=== PATIENT | female | born 1995 | race Caucasian/White ===

== ENCOUNTER 2017-02-26 19:31 | Emergency (ER) | payer BC, OTHER ==
[~2017-02-26] VITALS: Ht 160 cm; Wt 66.5 kg
[2017-02-26 19:43] VITALS: Ht 160 cm; Wt 66.5 kg
[2017-02-26 21:13] LABS: ADD UMIC YES; URINE BILIRUBIN (Dip) NEGATIVE (NEGATIVE); URINE BLOOD (Dip) 3+ (NEGATIVE); URINE COLOR YELLOW (YELLOW); URINE GLUCOSE (Dip) NEGATIVE (NEGATIVE); URINE KETONES (Dip) NEGATIVE (NEGATIVE); URINE LEUKOCYTE ESTERASE (Dip) 3+ (NEGATIVE); URINE NITRITE (Dip) POSITIVE (NEGATIVE); URINE TOTAL PROTEIN (Dip) 1+ (NEGATIVE); URINE UROBILINOGEN (Dip) 0.2 E.U./dL (0.1-1.0)
[2017-02-26 21:30] LABS: SQUAMOUS EPITHELIAL CELL,UR FEW
[2017-02-26 21:31] LABS: BACTERIA,URINE MODERATE
[2017-02-26] MEDS ORDERED: NITR-58 PO (21:51)
--- NOTE | 2017-02-26 21:56 | ERD ---
ER Documentation Chief Complaint Date/Time DATE: 02/26/17 TIME: 21:52 Chief Complaint DYSURIA WITH ODOR AND BLEEDING X 4 DAYS HPI Patient is a 21-year-old female who presents to the emergency department with concerns of dysuria 4 days. Patient does report frequency and urgency. Patient also reports hematuria. Patient denies any fevers, chills, nausea, vomiting, flank pain, abdominal pain or pelvic pain. Patient states her last menstrual period started last week. She does report any tract infections in the past. ROS All systems reviewed and are negative except as per history of present illness. Medications Home Meds Active Scripts Nitrofurantoin Monohyd Macrocr* (Macrobid*) 100 Mg Capsr, 100 MG PO BID for 5 Days, CAP Prov:BALJINDER MEJIA PA-C 02/26/17 Allergies Allergies: Coded Allergies: No Known Drug Allergy (Verified Allergy, Mild, 10/25/12) PMhx/Soc Medical and Surgical Hx: pt denies Medical Hx, pt denies Surgical Hx History of Surgery: No Anesthesia Reaction: No Hx Neurological Disorder: No Hx Respiratory Disorders: No Hx Cardiac Disorders: No Hx Psychiatric Problems: No Hx Miscellaneous Medical Probl: No Hx Alcohol Use: No Hx Substance Use: No Hx Tobacco Use: No FmHx Family History: No diabetes Physical Exam Vitals Vital Signs Date Time Temp Pulse Resp B/P Pulse Ox O2 Delivery O2 Flow Rate FiO2 02/26/17 19:43 96.9 63 16 131/82 99 Physical Exam GENERAL: Well-developed, well-nourished female. Appears in no acute distress. HEAD: Normocephalic, atraumatic. EYES: Pupils are equally reactive bilaterally. EOMs grossly intact. No conjunctival erythema. ENT: Moist mucous membranes. No uvula deviation. No kissing tonsils. NECK: Supple. No meningismus. Normal range of motion of the neck. LUNG: Clear to auscultation bilaterally. No rhonchi, wheezing, rales or coarse breath sounds. HEART: Regular rate and rhythm. No murmurs, rubs or gallops. ABDOMEN: No scars, ecchymosis or rashes noted. Soft, nontender, and nondistended. Positive bowel sounds in all four quadrants. No rebound tenderness , no guarding. (-) McBurney's point tenderness. No CVA tenderness. BACK: No midline tenderness. EXTREMITIES: Equal pulses bilaterally. No peripheral clubbing, cyanosis or edema. No unilateral leg swelling. NEUROLOGIC: Alert and oriented. Moving all four extremities without any difficulty. Normal speech. Steady gait. SKIN: Normal color. Warm and dry. No rashes or lesions. Results 24 hrs Laboratory Tests Test 02/26/17 20:30 Urine Color YELLOW Urine Clarity HAZY Urine pH 6.5 Urine Specific [place] 1.010 Urine Ketones NEGATIVE Urine Nitrite POSITIVE Urine Bilirubin NEGATIVE Urine Urobilinogen 0.2 E.U./dL Urine Leukocyte Esterase 3+ Urine Microscopic RBC 10-25/HPF Urine Microscopic WBC >50/HPF Urine Squamous Epithelial Cells FEW Urine Bacteria MODERATE Urine Hemoglobin 3+ Urine Glucose NEGATIVE% Urine Total Protein 1+ Procedures/MDM MEDICAL DECISION MAKING: This is a 21-year-old female presents with dysuria, frequency and hematuria 4 days. Patient denied any fevers, chills, nausea, vomiting or flank pain. Vital signs were reviewed. Patient was afebrile. UA showed positive nitrites, 3 + leukocyte esterase, greater than 50 WBCs. Urine was negative. Given these findings, the patient's presentation is most consistent with urinary tract infection. I have a much lower clinical concern for pyelonephritis , nephrolithiasis, appendicitis, diverticulitis, constipation, ectopic . PRESCRIPTIONS: Macrobid DISCHARGE: At this time, patient is stable for discharge and outpatient management. I have instructed the patient to follow-up with his/her primary care physician in 1-2 days. Patient should repeat UA in 2 weeks to check for resolution of urinary tract infection. If symptoms persist, patient may need to see a specialist for further examinations and testing. I have instructed the patient to promptly return to the ER at any time for any new or worsening symptoms including increased pain, fever, nausea, vomiting, urinary changes or weakness. The patient and/or family expressed understanding of and agreement with this plan. All questions were answered. Home care instructions were provided. Departure Diagnosis: Primary Impression: UTI (urinary tract infection) Urinary tract infection type: site unspecified Hematuria presence: with hematuria Qualified Code: N39.0 - Urinary tract infection with hematuria, site unspecified Condition: Stable Patient Instructions: Understanding Urinary Tract Infections (UTIs) Referrals: BOO SEVILLA MD (PCP) Additional Instructions: Call your primary care doctor TOMORROW for an appointment during the next 1-2 days.See the doctor sooner or return here if your condition worsens before your appointment time. BALJINDER MEJIA PA-C Feb 26, 2017 21:55
[2017-02-26 22:03] VITALS: BP 128/71; PULSE 78; RESP 20; TEMP 98.3
== END 2017-02-26 22:04 | disposition home or self-care (01) ==
LOC: FTE 19:31
DX: N39.0 Urinary tract infection, site not specified (principal)
CPT/HCPCS: 81001; 99283